=== PATIENT | male | born 1965 | race Caucasian/White ===

== ENCOUNTER 2017-10-22 18:09 | Emergency (ER) | payer SELFPAY ==
[~2017-10-22] VITALS: Ht 170.2 cm; Wt 110.0 kg
[2017-10-22 18:41] VITALS: BP 165/108; PULSE 93; RESP 18; TEMP 98.3; O2SAT 96
[2017-10-22 19:27] VITALS: BP 158/85; PULSE 90; RESP 16; O2SAT 96
--- NOTE | 2017-10-22 19:52 | PD ---
HPI Chief Complaint: Cardiac Complaint Time Seen by Provider: 19:25 Travel History International Travel<30 days: No Contact w/Intl Traveler<30days: No Traveled to known affect area: No History of Present Illness HPI pt is 52 yr old male who [place] coughing episode in [place] then felt palpitation and pressure in throat , went to walk in urgent care and was EKG and sent to ER , in ER no sympyoms and ekg from Urgent care no elevation no ectopy and NSR , pt reports recent URI with fever 5 days ago and now getting beter PFSH Past Medical History Hypertension: Yes Past Surgical History Surgical History: No Previous Surgery Social History Alcohol Use: No Tobacco Use: No Substance Use: No Allergies-Medications (Allergen,Severity, Reaction): Coded Allergies: No Known Allergies (Unverified , 10/22/17) Reported Meds & Prescriptions Reported Meds & Active Scripts Active No Active Prescriptions or Reported Medications Review of Systems Except as stated in HPI: all other systems reviewed are Neg HENT: Positive: Sore Throat, Neck Pain Cardiovascular: Positive: Palpitations, Irregular Rhythm Physical Exam Narrative GENERAL: awake alert nontoxic appearring SKIN: Warm and dry. HEAD: Atraumatic. Normocephalic. EYES: Pupils equal and round. No scleral icterus. No injection or drainage. ENT: No nasal bleeding or discharge. Mucous membranes pink and moist. NECK: Trachea midline. No JVD. CARDIOVASCULAR: Regular rate and rhythm. RESPIRATORY: No accessory muscle use. Clear to auscultation. Breath sounds equal bilaterally. Reproducible chest pain chest wall GASTROINTESTINAL: Abdomen soft, non-tender, nondistended. Hepatic and splenic margins not palpable. MUSCULOSKELETAL: Extremities without clubbing, cyanosis, or edema. No obvious deformities. NEUROLOGICAL: Awake and alert. No obvious cranial nerve deficits. Motor grossly within normal limits. Five out of 5 muscle strength in the arms and legs. Normal speech. PSYCHIATRIC: Appropriate mood and affect; insight and judgment normal. Data Data Last Documented VS Orders Orders Complete Blood Count With Diff (10/22/17 19:49) Comprehensive Metabolic Panel (10/22/17 19:49) Ckmb (Isoenzyme) Profile (10/22/17 19:49) Troponin I (10/22/17 19:49) Lipase (10/22/17 19:49) Chest, Pa & Lat (10/22/17 19:49) Aspirin Chew (Aspirin Chew) (10/22/17 20:00) Group A Rapid Strep Screen (10/22/17 21:25) Strep Culture (Group A) (10/22/17 21:41) Electrocardiogram (10/22/17 ) Troponin I (10/22/17 22:57) Ed Discharge Order (10/22/17 23:55) Labs Laboratory Tests Test 10/22/17 20:05 10/22/17 22:50 White Blood Count 7.7 TH/MM3 Red Blood Count 4.54 MIL/MM3 Hemoglobin 15.4 GM/DL Hematocrit 43.0 % Mean Corpuscular Volume 94.7 FL Mean Corpuscular Hemoglobin 34.0 PG Mean Corpuscular Hemoglobin Concent 35.9 % Red Cell Distribution Width 13.0 % Platelet Count 382 TH/MM3 Mean Platelet Volume 7.5 FL Neutrophils (%) (Auto) 71.4 % Lymphocytes (%) (Auto) 16.7 % Monocytes (%) (Auto) 9.2 % Eosinophils (%) (Auto) 2.1 % Basophils (%) (Auto) 0.6 % Neutrophils # (Auto) 5.5 TH/MM3 Lymphocytes # (Auto) 1.3 TH/MM3 Monocytes # (Auto) 0.7 TH/MM3 Eosinophils # (Auto) 0.2 TH/MM3 Basophils # (Auto) 0.0 TH/MM3 CBC Comment DIFF FINAL Differential Comment Blood Urea Nitrogen 13 MG/DL Creatinine 1.11 MG/DL Random Glucose 105 MG/DL Total Protein 7.2 GM/DL Albumin 3.5 GM/DL Calcium Level 9.0 MG/DL Alkaline Phosphatase 73 U/L Aspartate Amino Transf (AST/SGOT) 16 U/L Alanine Aminotransferase (ALT/SGPT) 35 U/L Total Bilirubin 0.6 MG/DL Sodium Level 139 MEQ/L Potassium Level 3.9 MEQ/L Chloride Level 104 MEQ/L Carbon Dioxide Level 26.4 MEQ/L Anion Gap 9 MEQ/L Estimat Glomerular Filtration Rate 70 ML/MIN Total Creatine Kinase 87 U/L Troponin I LESS THAN 0.02 NG/ML LESS THAN 0.02 NG/ML Lipase 139 U/L MDM Medical Decision Making Medical Screen Exam Complete: Yes Emergency Medical Condition: Yes Differential Diagnosis acute coronary syndrome vs costochondritis pna or trauma Narrative Course ekg normal troponin x2 were normal vitals nl pain gone safe for discharge with close outpt follow up Diagnosis Primary Impression: Atypical chest pain Patient Instructions: Chest Pain (ED), General Instructions Scripts No Active Prescriptions or Reported Meds Simba Alcantar MD Oct 22, 2017 19:52
[2017-10-22] MEDS ORDERED: ASPIRIN 81 MG CHEW TAB CHEW ONE (20:00)
--- NOTE | 2017-10-22 20:11 | RADRPT ---
EXAM DATE/TIME: 10/22/2017 19:57 [facility] COMPARISON: No previous studies available for comparison. INDICATIONS : Shortness of breath, cough, and palpitations. MEDICAL HISTORY : None. SURGICAL HISTORY : None. ENCOUNTER: Initial ACUITY: 1 day PAIN SCORE: 0/10 LOCATION: Bilateral chest FINDINGS: PA and lateral views of the chest demonstrate the lungs to be symmetrically aerated without evidence of mass, infiltrate or effusion. The cardiomediastinal contours are unremarkable. Osseous structure s are intact. CONCLUSION: No acute disease. Gordon Pichardo MD on October 22, 2017 at 20:10 Board Certified Radiologist. This report was verified electronically.
[2017-10-22 20:36] LABS: AUTOMATED NEUTROPHIL # 5.5 TH/MM3 (1.8-7.7); BASOPHIL % 0.6 % (0.0-2.0); EOSINOPHIL # 0.2 TH/MM3 (0-0.4); EOSINOPHIL % 2.1 % (0.0-4.0); HEMOGLOBIN 15.4 GM/DL (13.0-17.0); LYMPH % 16.7 % (9.0-44.0); LYMPHOCYTE # 1.3 TH/MM3 (1.0-4.8); MEAN CELL VOLUME 94.7 FL (80.0-100.0); MEAN CORPUSCULAR HGB CONC 35.9 % (32.0-36.0); MEAN PLATELET VOLUME 7.5 FL (7.0-11.0); MONO % 9.2 % (0.0-8.0); MONOCYTE # 0.7 TH/MM3 (0-0.9); NEUT % 71.4 % (16.0-70.0); PLATELET COUNT 382 TH/MM3 (150-450); RED BLOOD COUNT 4.54 MIL/MM3 (4.50-5.90); WHITE BLOOD COUNT 7.7 TH/MM3 (4.0-11.0)
[2017-10-22 20:47] LABS: ALBUMIN 3.5 GM/DL (3.4-5.0); AST (GOT) 16 U/L (15-37); BICARBONATE 26.4 MEQ/L (21.0-32.0); BLOOD UREA NITROGEN 13 MG/DL (7-18); CHLORIDE 104 MEQ/L (98-107); CREATININE 1.11 MG/DL (0.60-1.30); GLOMERULAR FILTRATION RATE 70 ML/MIN (>89); GLUCOSE,RANDOM 105 MG/DL (74-106); SODIUM (NA) 139 MEQ/L (136-145)
[2017-10-22 20:53] LABS: ALKALINE PHOSPHATASE 73 U/L (45-117); ALT (GPT) 35 U/L (12-78); TOTAL BILIRUBIN ADULT 0.6 MG/DL (0.2-1.0); TOTAL PROTEIN 7.2 GM/DL (6.4-8.2); TROPONIN I LESS THAN 0.02 NG/ML (0.02-0.05)
[2017-10-23] VITALS: BP 119/75
--- NOTE | 2017-10-23 17:47 | EKG ---
Date Performed: 10/22/2017 Time Performed: 22:42:28 PTAGE: 52 years EKG: Sinus rhythm NORMAL ECG NO PREVIOUS TRACING DOCTOR: Jessenia Dudley Interpretating Date/Time 10/23/2017 17:45:14
== END 2017-10-23 00:20 | disposition home or self-care (01) ==
LOC: NEPC 18:09
DX: R07.89 Other chest pain (principal)
CPT/HCPCS: 71046; 80053; 82550; 83690; 84484; 85025; 87081; 87880; 93005